=== PATIENT | male | born 1975 | race African-American/Black ===

== ENCOUNTER 2020-08-17 18:54 | Emergency (ER) | payer MEDICAID ==
[~2020-08-17] VITALS: Ht 190.5 cm; Wt 113.3 kg
[2020-08-17 19:05] VITALS: BP 115/80
[2020-08-17] MEDS ORDERED: ACETAMINOPHEN 500MG TABLET PO ONE (20:15)
[2020-08-17] MEDS ORDERED: IBUPROFEN 600MG TABLET PO ONE (20:15)
== END 2020-08-17 21:06 | disposition home or self-care (01) ==
LOC: ER 18:54
DX: U07.1 COVID-19 (principal)
CPT/HCPCS: 87635; 87804; 99283